=== PATIENT | female | born 1950 | race Caucasian/White ===

== ENCOUNTER 2018-12-27 07:55 | Day surgery (SDC) | payer BC ==
[~2018-12-27] VITALS: Ht 157.5 cm; Wt 99.3 kg
[2018-12-27] MEDS ORDERED: PANT20 (08:34)
[2018-12-27] MEDS ORDERED: Azor 5-20 MG T1 EACH (08:34)
[2018-12-27] MEDS ORDERED: ATOR10 (08:34)
[2018-12-27] MEDS ORDERED: LEVSOD100 (08:35)
--- NOTE | 2018-12-27 10:52 | NUR ---
12/27/[address] AWARE OF PT'S ABDOMINAL CRMAPING 10/02. NO ORDERS. AT BEDSIDE ENCOURAGING PT TO MOVE AROUND TODAY TO ALLOW AIR TO PASS.
== END 2018-12-27 10:48 | disposition home or self-care (01) ==
LOC: ORSCSDS 07:55
PROVIDERS: Internal Medicine Gastroenterology
PROC: 0DB68ZX Excision of Stomach, Via Natural or Artificial Opening Endoscopic, Diagnostic (ICD-10-PCS; principal; 2018-12-27 09:15)
PROC: 0DBP8ZX Excision of Rectum, Via Natural or Artificial Opening Endoscopic, Diagnostic (ICD-10-PCS; principal; 2018-12-27 09:15)
PROC: 0DBK8ZX Excision of Ascending Colon, Via Natural or Artificial Opening Endoscopic, Diagnostic (ICD-10-PCS; principal; 2018-12-27 09:15)
PROC: 0DB98ZX Excision of Duodenum, Via Natural or Artificial Opening Endoscopic, Diagnostic (ICD-10-PCS; principal; 2018-12-27 09:15)
PROC: 0DBM8ZX Excision of Descending Colon, Via Natural or Artificial Opening Endoscopic, Diagnostic (ICD-10-PCS; principal; 2018-12-27 09:15)
DX: K21.9 Gastro-esophageal reflux disease without esophagitis (principal); Z12.11 Encounter for screening for malignant neoplasm of colon; D12.4 Benign neoplasm of descending colon; D12.8 Benign neoplasm of rectum; K57.30 Diverticulosis of large intestine without perforation or abscess without bleeding; K31.7 Polyp of stomach and duodenum; K64.1 Second degree hemorrhoids; I10 Essential (primary) hypertension; E03.9 Hypothyroidism, unspecified; E78.5 Hyperlipidemia, unspecified; E66.01 Morbid (severe) obesity due to excess calories; Z68.41 Body mass index [BMI] 40.0-44.9, adult; Z79.899 Other long term (current) drug therapy
CPT/HCPCS: 88305; J2405; J2704; J7120

== ENCOUNTER 2024-06-03 09:52 | Emergency (ER) | payer OTHER, MEDICARE, BC ==
[~2024-06-03] VITALS: Ht 157.5 cm; Wt 91.2 kg
[~2024-06-03 09:52] MED LIST: ATOR10; Azor 5-20 MG T1 EACH; LEVSOD100; PANT20
[2024-06-03 10:06] VITALS: BP 149/82
[2024-06-03] MEDS ORDERED: OxyCODONE 5 mg/Acetamin 325 mg TABLET PO ONE (11:10)
[2024-06-03] MEDS ORDERED: OXYC5 PO (14:19)
== END 2024-06-03 15:14 | disposition home or self-care (01) ==
LOC: ER 09:52
DX: S32.049A Unspecified fracture of fourth lumbar vertebra, initial encounter for closed fracture (principal); W01.0XXA Fall on same level from slipping, tripping and stumbling without subsequent striking against object, initial encounter
CPT/HCPCS: 72100; 72131; 99284-25; A9270

== ENCOUNTER 2024-07-01 06:37 | Day surgery (SDC) | payer MEDICARE, BC ==
[~2024-07-01] VITALS: Ht 157.5 cm; Wt 91.0 kg
[~2024-07-01 06:37] MED LIST changes: +AMLO10 PO; +ATORVASTATIN CA10 M1 PO; +LEVSOD100 PO; +OXYC5 PO; +OZEMPIC0.25 MG/02 IM; -PANT20; +PANT20 PO; +PREG75 PO
--- NOTE | 2024-07-01 07:33 | NUR ---
BILAT FEET/ARMS EQUAL PLANTAR FLEX/HAND [employer]. NO LEG OR ARM DRIFT. PT COULD FEEL COLD ON BILAT LEGS.
[2024-07-01] MEDS ORDERED: Lactated Ringer's 0 ML IV ONE (07:34)
[2024-07-01] MEDS ORDERED: propofoL 100 ML IV ONE (07:39)
--- NOTE | 2024-07-01 07:42 | NUR ---
PT STATES SHE HAS NO NUMBNESS IN HER LIMBS LAYING FLAT. DR MAY IN ROOM TO SEE PT.
[2024-07-01 07:45] VITALS: BP 157/107
[2024-07-01] MEDS ORDERED: Bupivacaine 0.5% HCl 5 MG/ML 30MLVIAL ONE (07:50)
[2024-07-01] MEDS ORDERED: Sugammadex Sodium 200 MG/2ML SDV (100 MG/ML) IV ONE (07:54)
--- NOTE | 2024-07-01 08:09 | NUR ---
DR MAY CANCELLED CASE WILL HAVE PT FOLLOW UP WITH PHYSICAL THERAPY. DISCHARGE INSTRUCTIONS REVIEWED ALL QUESTIONS ANSWERED. 20 G IV DISCONTINUED FROM L AC WITH INTACT CANNULA. PT ESCORTED OUT VIA WHEELCHAIR ESCORT.
== END 2024-07-01 08:15 | disposition home or self-care (01) ==
LOC: MHTC 06:37
DX: S32.040A Wedge compression fracture of fourth lumbar vertebra, initial encounter for closed fracture (principal); S22.000A Wedge compression fracture of unspecified thoracic vertebra, initial encounter for closed fracture; X58.XXXA Exposure to other specified factors, initial encounter; Z88.1 Allergy status to other antibiotic agents; Z88.8 Allergy status to other drugs, medicaments and biological substances; Z79.899 Other long term (current) drug therapy; Z79.890 Hormone replacement therapy
CPT/HCPCS: J2704; J7120

== ENCOUNTER → 2024-08-13 | Outpatient (CLI) | payer MEDICARE, BC | LOC: LAB SHORT 11:40 → LAB 11:40 | DX: L08.0 Pyoderma (principal) | CPT/HCPCS: 87070; 87205 ==